=== PATIENT | male | born 1980 | race Two or more races ===

== ENCOUNTER 2020-07-09 17:03 | Emergency (ER) | payer SELFPAY ==
[2020-07-09 17:58] VITALS: BP 166/93
--- NOTE | 2020-07-09 18:13 | ER Document Report ---
HPI - HPI Patient complains to provider of: Nasal congestion Time Seen by Provider: 07/09/20 18:05 Pain Level: 1 Context: 40-year-old male presents to the emergency room complaining of sinus pain with nasal congestion for the past 2 weeks. No fevers. No nausea, no vomiting. Has been taking ibuprofen and Tylenol with some relief. No COVID-19 exposure Associated Symptoms: None Exacerbated by: Denies Relieved by: Denies Similar symptoms previously: No Recently seen / treated by doctor: No - ROS Systems Reviewed and Negative: Yes All other systems reviewed and negative - CONSTITUTIONAL Constitutional: DENIES: Fever, Chills - EENT EENT: REPORTS: Nasal Drainage-Clear, Congestion. DENIES: Sore Throat - NEURO Neurology: REPORTS: Headache - RESPIRATORY Respiratory: DENIES: Trouble Breathing, Coughing - DERM Skin Color: Normal Skin Problems: None Past Medical History - General Information source: Patient - Social History Smoking Status: Never Smoker Frequency of alcohol use: None Drug Abuse: None Family History: Reviewed & Not Pertinent Vertical Provider Document - CONSTITUTIONAL Agree With Documented VS: Yes Exam Limitations: No Limitations General Appearance: Mild Distress - INFECTION CONTROL TRAVEL OUTSIDE OF THE [place] IN LAST 30 DAYS: No - HEENT HEENT: Atraumatic, Normocephalic. negative: Pharyngeal Exudate, Pharyngeal Tenderness, Pharyngeal Erythema, Tympanic Membrane Red, Tympanic Membrane Bulging Notes: Bilateral tympanic membranes are dull and retracted. Purulent nasal drainage noted bilaterally. Tenderness on palpation to frontal and maxillary sinuses peer - NECK Neck: Normal Inspection, Supple. negative: Lymphadenopathy-Left, Lymphadenopathy-Right - RESPIRATORY Respiratory: Breath Sounds Normal, No Respiratory Distress - CARDIOVASCULAR Cardiovascular: No Murmur, Bradycardia - MUSCULOSKELETAL/EXTREMETIES Musculoskeletal/Extremeties: FROM - NEURO Level of Consciousness: Awake, Alert, Appropriate Motor/Sensory: No Motor Deficit, No Sensory Deficit - DERM Integumentary: Warm, Dry, No Rash Course - Re-evaluation Re-evalutation: 07/09/20 18:09 Reviewed diagnosis with patient. Counseled to take antibiotics and use nasal spray as prescribed. Outpatient follow-up with a primary care physician if not improving in 2 to 3 days. On-call physician will be provided. Tylenol and or Motrin as needed for pain. Patient was given strict return to the emergency room guidelines. Return for any new or worsening symptoms. All questions were answered. Patient verbalized understanding and agrees with plan of care. - Vital Signs Vital signs: Temp Pulse Resp BP Pulse Ox 98.4 F 58 L 20 166/93 H 100 07/09/20 17:57 07/09/20 17:57 07/09/20 17:57 07/09/20 17:57 07/09/20 17:57 - Laboratory Results Critical Laboratory Results Reviewed: No Critical Results - Radiology Results Critical Radiology Results Reviewed: No Critical Results Discharge - Discharge Clinical Impression: Acute frontal sinusitis Qualifiers: Recurrence: non-recurrent Qualified Code(s): J01.10 - Acute frontal sinusitis, unspecified Maxillary sinusitis, acute Qualifiers: Recurrence: non-recurrent Qualified Code(s): J01.00 - Acute maxillary sinusitis, unspecified Condition: Stable Disposition: HOME, SELF-CARE Instructions: Sinusitis ([facility]) Additional Instructions: Take antibiotics and use nasal spray as prescribed. Continue with Tylenol and or Motrin as needed for pain. Follow-up with a primary care physician if not improving in 2 to 3 days. Return to the emergency room for any new or worsening symptoms Prescriptions: Amoxicillin/Potassium Clav [Augmentin 875-125 Tablet] 1 tab PO Q12 #14 tablet Fluticasone Propionate [Flonase Nasal Adel 50 Mcg/Adel 16 gm] 2 sprays NASL DAILY 10 Days #1 inhaler Referrals: JOSE LUIS RODRIGUEZ MD [ACTIVE STAFF] - Follow up as needed
== END 2020-07-09 18:29 | disposition home or self-care (01) ==
LOC: ER 17:03
DX: J01.10 Acute frontal sinusitis, unspecified (principal); J01.00 Acute maxillary sinusitis, unspecified; R51.9 Headache, unspecified
CPT/HCPCS: 99283